=== PATIENT | male | born 1975 | race African-American/Black ===

== ENCOUNTER 2019-12-21 06:20 | Emergency (ER) | payer OTHER ==
[~2019-12-21] VITALS: Ht 175.3 cm; Wt 116.0 kg
[2019-12-21] MEDS ORDERED: SODIUM CHLORIDE 0.9% 1,000 ML IV ONE (06:43)
--- NOTE | 2019-12-21 06:54 | NUR ---
REPORT GIVEN TO IRVIN BIRCH
--- NOTE | 2019-12-21 06:58 | NUR ---
PT REPORT FROM IRVIN MEZA. PT CARE TO BE ASSUMED. PT REPORTS IMPROVEMENT IN THROAT PAIN. STATES "IT STARTED TO DRAIN ON THE WAY OVER HERE". PAIN = 10. RESP EVEN & UNLABORED, SPEECH CLEAR, ABLE TO SPEAK IN COMPLETE SENTENCES, SKIN WNL.
[2019-12-21] MEDS ORDERED: SODIUM CHLORIDE 0.9% 1,000ML IVBOLUS ONE (07:00)
[2019-12-21 07:03] LABS: BASOPHILS % (AUTO) 0 % (0-1); EOSINOPHILS % (AUTO) 0 % (1-7); LYMPHOCYTES # (AUTO) 0.54 x10^3/uL (1-3.4); LYMPHOCYTES % (AUTO) 5 % (22-44); MD NO; MEAN CORPUSCULAR HEMOGLOBIN 32.6 pg (27.5-34.5); MEAN CORPUSCULAR HGB CONC 33.6 g/dL (33.2-36.2); MEAN PLATELET VOLUME 7.2 fL (7.4-10.4); MONOCYTES # (AUTO) 0.14 x10^3/uL (0.2-0.8); MONOCYTES % (AUTO) 1 % (2-9); NEUTROPHILS % (AUTO) 94 % (42-75); PLATELET COUNT 319 x10^3/uL (130-400); RED BLOOD COUNT 5.14 x10^6/uL (4.38-5.82); RED CELL DISTRIBUTION WIDTH 12.4 % (9.4-14.8)
[2019-12-21 07:12] LABS: ALBUMIN 3.9 g/dL (3.4-5.0); ANION GAP 7 mmol/L (5-15); CALCIUM 9.8 mg/dL (8.5-10.1); CHLORIDE 108 mmol/L (98-107); CREATININE 1.39 mg/dL (0.7-1.3)
--- NOTE | 2019-12-21 07:29 | NUR ---
PIV INITIATED. NS BOLUS HUNG, INFUSING W-O. PT AWAITING CT.
[2019-12-21] MEDS ORDERED: OMNIPAQUE 350 MG/ML, 100ML BOTTLE ONE (08:13)
[2019-12-21 09:31] VITALS: BP 132/89
== END 2019-12-21 09:34 | disposition home or self-care (01) ==
LOC: ED 06:53
DX: J02.9 Acute pharyngitis, unspecified (principal); H92.03 Otalgia, bilateral; Z87.891 Personal history of nicotine dependence
CPT/HCPCS: 36415; 70491; 80048; 82040; 85025; 99285; J7030; Q9967